=== PATIENT | female | born 1985 ===

== ENCOUNTER 2019-06-12 13:19 | Inpatient (IN) | payer OTHER ==
[~2019-06-12] VITALS: Ht 160 cm; Wt 152.0 kg
[2019-06-12] MEDS ORDERED: PRENATABS RX T1 EACH PO (14:54)
[2019-06-12] MEDS ORDERED: ZYRTEC10 M3 PO (14:54)
[2019-06-12] MEDS ORDERED: SINGULAIR 10MG10 MG PO (14:55)
[2019-06-14] MEDS ORDERED: IBUPROFEN400 MG PO (08:02)
[2019-06-14] MEDS ORDERED: Dermoplast SPRAY TOP (08:02)
[2019-06-14] MEDS ORDERED: DOCUSATE SODIU100 MG PO (08:02)
[2019-06-14] MEDS ORDERED: PREPLUS CA-FE1 EACH PO (08:02)
== END 2019-06-14 12:08 | disposition home or self-care (01) | DRG 807 ==
LOC: LDR 13:19 → OB/GYN 13:19
PROVIDERS: ADMIT Obstetrics & Gynecology
PROC: 10E0XZZ Delivery of Products of Conception, External Approach (ICD-10-PCS; principal; 2019-06-12)
PROC: 10907ZC Drainage of Amniotic Fluid, Therapeutic from Products of Conception, Via Natural or Artificial Opening (ICD-10-PCS; 2019-06-12)
PROC: 0W8NXZZ Division of Female Perineum, External Approach (ICD-10-PCS; 2019-06-12)
PROC: 4A1HXCZ Monitoring of Products of Conception, Cardiac Rate, External Approach (ICD-10-PCS; 2019-06-12)
DX: O80 Encounter for full-term uncomplicated delivery (principal); Z37.0 Single live birth; Z3A.37 37 weeks gestation of pregnancy